=== PATIENT | female | born 1935 | race Two or more races ===

== ENCOUNTER 2023-03-01 13:53 | Emergency (ER) | payer OTHER ==
[~2023-03-01] VITALS: Ht 165.1 cm; Wt 59.0 kg
[2023-03-01] MEDS ORDERED: HYDROCHLOROTH12.5 MG PO (14:02)
[2023-03-01] MEDS ORDERED: AMLODIPINE-OLM1 EAC2 PO (14:02)
[2023-03-01] MEDS ORDERED: KEPPRA500 MG PO (14:02)
[2023-03-01] MEDS ORDERED: COZAAR100 MG PO (14:02)
[2023-03-01] MEDS ORDERED: ARICEPT5 MG PO (14:03)
[2023-03-01] MEDS ORDERED: ABANEU-SL TABL1 EACH SL (14:03)
[2023-03-01] MEDS ORDERED: MEMANTINE HCL5 MG PO (14:03)
[2023-03-01] MEDS ORDERED: PROTONIX20 MG PO (14:04)
[2023-03-01] MEDS ORDERED: MACRODANTIN100 M1 PO (22:26)
== END 2023-03-01 22:33 | disposition home or self-care (01) ==
LOC: ER 13:53
DX: N39.0 Urinary tract infection, site not specified (principal); R10.9 Unspecified abdominal pain; Z88.6 Allergy status to analgesic agent; Z91.013 Allergy to seafood; E03.9 Hypothyroidism, unspecified; I10 Essential (primary) hypertension; Z86.73 Personal history of transient ischemic attack (TIA), and cerebral infarction without residual deficits; K57.30 Diverticulosis of large intestine without perforation or abscess without bleeding